=== PATIENT | female | born 2000 | race Two or more races ===

== ENCOUNTER 2022-12-27 00:34 | Emergency (ER) | payer OTHER ==
[~2022-12-27] VITALS: Ht 162.6 cm; Wt 68.0 kg
[2022-12-27] MEDS ORDERED: ACETAMINOPHEN ES 500 MG TABLET PO ONE (01:15)
[2022-12-27] MEDS ORDERED: ACETAMINOPHEN ES 500 MG TABLET ONE ×2 (01:25→01:27)
[2022-12-27 02:30] LABS: *URINE HCG, QUAL NEGATIVE (NEGATIVE)
[2022-12-27] MEDS ORDERED: OXYCODONE HCL 5 MG TABLET PO ONE (03:15)
[2022-12-27] MEDS ORDERED: HYDROCODONE/APAP 10-325 MG TABLET PO ONE (03:15)
[2022-12-27] MEDS ORDERED: OXYCODONE HCL 5 MG TABLET ONE (03:17)
[2022-12-27] MEDS ORDERED: HYDR-4209 PO (05:47)
[2022-12-27] MEDS ORDERED: CYCL5TAB PO (05:47)
[2022-12-27 06:08] VITALS: BP 118/62; O2SAT 99
== END 2022-12-27 06:10 | disposition home or self-care (01) ==
LOC: ER 00:57
DX: S06.0X0A Concussion without loss of consciousness, initial encounter (principal); S16.1XXA Strain of muscle, fascia and tendon at neck level, initial encounter; S20.219A Contusion of unspecified front wall of thorax, initial encounter; Z86.2 Personal history of diseases of the blood and blood-forming organs and certain disorders involving the immune mechanism; Z79.899 Other long term (current) drug therapy; V43.62XA Car passenger injured in collision with other type car in traffic accident, initial encounter; Y93.89 Activity, other specified; Y92.410 Unspecified street and highway as the place of occurrence of the external cause; Y99.8 Other external cause status
CPT/HCPCS: 71250; 72125; 84703; A4663; A9150